=== PATIENT | male | born 1940 | race Caucasian/White ===

== ENCOUNTER 2017-01-07 05:51 | Day surgery (SDC) | payer MEDICARE, BC ==
[2017-01-07] MEDS ORDERED: IV LACTATED RINGERS SOLUTION 1,000 ML BAG IV ONE (05:52)
[2017-01-07] MEDS ORDERED: CEFAZOLIN 1 G VIAL MC ONE (05:52)
[2017-01-07] MEDS ORDERED: LIDOCAINE HCL 1% 20 ML VIAL MC ONE (05:52)
[2017-01-07] MEDS ORDERED: PROPOFOL 200 MG/20 ML BOTTLE IV ONE (05:52)
[2017-01-07] MEDS ORDERED: BUPIVACAINE/EPI PF 0.25% 30 ML VIAL ONE ×2 (07:39→08:37)
[2017-01-07] MEDS ORDERED: FENTANYL CITRATE 100 MCG/2 ML AMPUL ONE (08:19)
[2017-01-07] MEDS ORDERED: BUPIVACAINE 0.25% 30 ML VIAL ONE (08:35)
[2017-01-07] MEDS ORDERED: OXYCODONE/APAP 5-325 MG TABLET ONE (09:26)
== END 2017-01-07 10:30 | disposition home or self-care (01) ==
LOC: DS 05:51
PROVIDERS: ATTEND Surgery
DX: K62.4 Stenosis of anus and rectum (principal); E66.3 Overweight; I10 Essential (primary) hypertension; M19.90 Unspecified osteoarthritis, unspecified site; F32.9 Major depressive disorder, single episode, unspecified
CPT/HCPCS: 36415; 85730; A4649; A4663; J0690; J3010; J3490; J7120